=== PATIENT | female | born 1950 | race Caucasian/White ===

== ENCOUNTER 2020-02-21 06:11 | Day surgery (SDC) | payer OTHER ==
[2020-02-19 17:31] LABS: Absolute Lymphocytes (CBC) 2.4 K/uL (0.7-4.9); Hematocrit 45.4 % (36.0-45.0); Lymphocytes % 36.9 % (15.3-44.8); RBC Red Blood Cell Count 4.95 M/uL (3.86-4.86)
[2020-02-19 17:34] LABS: Protime INR 0.91
[2020-02-19 17:43] LABS: Potassium 3.6 mmol/L (3.5-5.1)
[2020-02-21] MEDS ORDERED: NA CHLORIDE 0.9% 500 ML ONE (06:54)
[2020-02-21] MEDS ORDERED: MIDAZOLAM HCL 2 MG/2 ML INJ ONE (07:15)
[2020-02-21] MEDS ORDERED: FENTANYL CITR 100 MCG/2 ML ONE (07:15)
[2020-02-21] MEDS ORDERED: NA CHLORIDE 0.9% 0 ML ONE (07:16)
[2020-02-21] MEDS ORDERED: ATROPINE SULF 1 MG/10 ML SYR IV ONE (07:16)
[2020-02-21 08:38] VITALS: TEMP 98.2
[2020-02-21 10:44] VITALS: O2SAT 92
[2020-02-21 10:45] VITALS: BP 107/95
--- NOTE | 2020-02-21 15:02 | OP ---
Surgeon: Jake Rose MD Set Up Inspector: Ced Kim. The patient admitted as an outpatient to the chemical lab technician today on 02/21/2020. History Of Present Illness: Ms. Sevilla is a 69-year-old woman with history of chest pain, multiple cardiac risk factors, abnormal carotid Doppler. She was admitted today as an outpatient on 02/21/20 20 to the chemical lab technician. Procedure Performed: Left heart catheterization, selective coronary arteriogram, bilateral selective carotid angiogram. Indication: CAD and CVD. Description Of Procedure: The patient was prepped and draped in the routine sterile fashion. Given Versed and fentanyl for IV sedation. Right groin access was obtained with a 6-[place] sheath. Angiog gerardo there showed a small iliac artery otherwise normal. StarClose was used to close the case. Lef t main was cannulated with a JL4 injection and there showed a very short left main. She had normal c ircumflex. She had 80% stenosis in the mid LAD extending from the first septal to the second diagona l. The RCA was normal, was very dominant. The circumflex was normal, was nondominant. JR4 catheter was used to cannulate bilateral carotid, left and right. The right carotid showed a 50% to 60% inte rnal carotid artery stenosis, 80% external carotid artery stenosis. The right side of the carotid sh owed similar findings with 50 to 60% ICA and 80% ECA. Both of the common carotids were normal. 6-Fr ench sheath and catheters were used. There were no complications. Blood Loss: 5 mL. Postoperative Diagnoses: 1.Moderate cerebrovascular disease with 50% to 60% bilateral . We will resume medical claus atment with aspirin, Plavix, as well as statin. 2.Coronary artery disease, single-vessel, severe. The patient has received already [address] and I elected to do the LAD in a staged manner. The total conscious sedation was 45 minutes. Plan: Plan is for medical therapy including aspirin, Plavix, statin for the carotid and I will sched ule her for LAD angioplasty and stent in the next 1 to 2 weeks. The case was discussed in detail wit h the patient and the family. She can go home today and I will set up her LAD stent as an outpatient . NB/MODL Voice ID: [id number] Report ID: [id number]
== END 2020-02-21 10:15 | disposition home or self-care (01) ==
LOC: CCL 06:11
DX: I65.23 Occlusion and stenosis of bilateral carotid arteries (principal); I25.10 Atherosclerotic heart disease of native coronary artery without angina pectoris; J44.9 Chronic obstructive pulmonary disease, unspecified; I10 Essential (primary) hypertension; E78.5 Hyperlipidemia, unspecified; Z88.8 Allergy status to other drugs, medicaments and biological substances; Z79.82 Long term (current) use of aspirin; Z79.02 Long term (current) use of antithrombotics/antiplatelets
CPT/HCPCS: 85025; 80048; 36415; 85610; 85730; 93454; 36222; C1893; J2250; J3010; J7040; 93458; J0583

== ENCOUNTER 2020-03-06 06:09 | Day surgery (SDC) | payer OTHER ==
[2020-03-06] MEDS ORDERED: HEPA 1000U/500MLS 1,000 UNIT/500 ML BAG IV ONE (06:46)
[2020-03-06] MEDS ORDERED: LIDOCAINE 1% 20 ML MDV ONE (06:46)
[2020-03-06] MEDS ORDERED: MIDAZOLAM HCL 2 MG/2 ML INJ ONE (06:46)
[2020-03-06] MEDS ORDERED: NITROGLYCERIN/D5W 25 MG/250 ML BTL IV ONE (06:47)
[2020-03-06] MEDS ORDERED: NA CHLORIDE 0.9% 500 ML ONE (06:47)
[2020-03-06] MEDS ORDERED: FENTANYL CITR 100 MCG/2 ML ONE (06:47)
[2020-03-06] MEDS ORDERED: NA CHLORIDE 0.9% 50 ML ONE (06:47)
[2020-03-06] MEDS ORDERED: NITROGLYCERIN 100 MCG/ML SYR (for cath lab use only) IV ONE (06:47)
[2020-03-06] MEDS ORDERED: ATROPINE SULF 1 MG/10 ML SYR IV ONE (06:47)
[2020-03-06] MEDS ORDERED: PRASUGREL (EFFIENT) 10 MG TAB ONE (08:15)
[2020-03-06] MEDS ORDERED: MORPHINE 4 MG/ML SYR IV PRN (09:09)
[2020-03-06] MEDS ORDERED: ONDANSETRON 4 MG/2 ML VIAL IV PRN (09:09)
[2020-03-06] MEDS ORDERED: ACETAMINOPHEN 325 MG TABLET PO PRN (10:00)
[2020-03-06] MEDS ORDERED: NITROGLYCERIN 0.4 MG/TAB SL PRN (10:00)
[2020-03-06] MEDS ORDERED: NA CHLORIDE 0.9% 1,000 ML IV SCH (10:00)
[2020-03-06 10:30] VITALS: BMI 19.1
--- NOTE | 2020-03-06 11:11 | OP ---
Date of Procedure: 03/06/2020 Surgeon: Jake Rose MD Complaint Coordinator: Ivonne Peña. Procedure: Selective coronary artery angiography with primary stent of the mid LAD. History Of Present Illness: Ms. Sevilla is a 69-year-old who was noted on recent angiography 2 week s ago to have an 80% stenosis in the mid LAD. At that time, she also had carotid angiogram, bilatera l selective showing moderate disease in both carotids. We decided to do the LAD stent as a staged pr ocedure. She was admitted today as an outpatient to the mobile lab technician, prepped and draped in the routine sterile fashion. Given Versed and fentanyl for IV sedation. A 6-[place] sheath introduced in the rig ht common femoral artery successfully. Angiography there was normal except for small vessels. Angio -Seal was used to close the case. An XB 3.0 LAD guide with side hole was used to cannulate the left main. A [place] wire was used to cross the lesion successfully. A 2.25 x 16 Synergy stent was placed at 11 atmosphere with 0% residual. There were no complications. Blood Loss: 5 mL. Anesthesia: Total conscious sedation was 45 minutes. Patient received aspirin, Effient and Angiomax during the procedure. Final Diagnosis: Coronary artery disease status post successful primary stent of the mid LAD. Plan: To continue her medical regimen at home except to add Plavix 75 mg daily. The case was discus sed with the patient. I did call her daughter and gave her an update. She will remain in the hospit al after 2 hours of bedrest overnight and she will go home in the morning. MORALES/KRISTY Voice ID: [id number] Report ID: [id number]
[2020-03-06 18:25] VITALS: O2SAT 94
[2020-03-06] MEDS ORDERED: ATORVASTATIN 40 MG TAB PO SCH (21:00)
[2020-03-07 06:19] LABS: Absolute Lymphocytes (CBC) 1.8 K/uL (0.7-4.9); Basophils % 1.3 % (0-1.3); Hematocrit 42.8 % (36.0-45.0); Lymphocytes % 31.1 % (15.3-44.8); MPV 8.9 fL (7.6-11.3); RBC Red Blood Cell Count 4.62 M/uL (3.86-4.86)
[2020-03-07 06:49] LABS: BUN Blood Urea Nitrogen 10 mg/dL (7-18); Bicarbonate 26 mmol/L (21-32); Glucose Level 91 mg/dL (74-106); HDL Cholesterol 89 mg/dL (40-60); LDL Cholesterol, Calculated 64 (<130); Potassium 3.9 mmol/L (3.5-5.1); Sodium Level 141 mmol/L (136-145)
[2020-03-07] MEDS ORDERED: CLOPIDOGREL 75 MG TABLET PO SCH (09:00)
[2020-03-07] MEDS ORDERED: METOPROLOL XL 25 MG TAB PO SCH (09:00)
[2020-03-07] MEDS ORDERED: ASPIRIN 81 MG CHEWABLE TABLET PO SCH (09:00)
[2020-03-07 09:11] VITALS: TEMP 98.4
[2020-03-07 09:42] VITALS: BP 97/64
--- NOTE | 2020-03-07 14:33 | EKG ---
Test Date: 2020-03-07 Test Time: 09:02:50 Weigh And Charge Worker: JORGE MEASUREMENT RESULTS: Intervals: Rate: 71 UT: 122 QRSD: 76 QT: 408 QTc: 443 [place]: P: 81 UT: 122 QRS: 84 T: 47 INTERPRETIVE STATEMENTS: Normal sinus rhythm Normal ECG Compared to ECG 05/10/2005 07:28:00 No significant changes Electronically Signed On 03-07-20 14:32:51 CDT by Jake Rose
--- NOTE | 2020-03-07 15:18 | PN ---
Subjective: Mrs. Sevilla is a 69-year-old who was admitted as an outpatient through the labeling strategist fo r a stent of her LAD. She had been documented to have an LAD stenosis along with moderate bilateral carotid artery stenosis about 2 weeks ago after angiography. She was scheduled for her LAD stent yes terday. She has been having some chest pain. She was brought to the labeling strategist yesterday and underwen t a successful primary stent of her mid LAD with a 2.25 x 16 Synergy stent. She received aspirin, Ef fient, Angiomax during the procedure. Overnight, she did very well. She does not have any chest nilesh n. Objective: Vital Signs: Stable. She is afebrile. Chest: Clear. Cardiac: Normal. Skin: Her right groin does not have any hematoma or erythema or swelling. Extremities: She has good distal pulses in dorsalis pedis and posterior tibial. Assessment/plan: She will be going home today with her home medications, which include statins, anti hypertensive therapy, aspirin. I will add Plavix 75 mg 1 p.o. daily to her regimen. I will see her in the office in the next 2 weeks. MORALES/KRISTY Voice ID: [id number] Report ID: [id number]
== END 2020-03-07 10:18 | disposition home or self-care (01) ==
LOC: CCL 06:09 → 2ND 09:02 → CCL 03-07 10:18
DX: I25.10 Atherosclerotic heart disease of native coronary artery without angina pectoris (principal); I65.23 Occlusion and stenosis of bilateral carotid arteries; I70.209 Unspecified atherosclerosis of native arteries of extremities, unspecified extremity; I10 Essential (primary) hypertension; J44.9 Chronic obstructive pulmonary disease, unspecified; E78.5 Hyperlipidemia, unspecified; Z79.82 Long term (current) use of aspirin
CPT/HCPCS: 93005; 85025; 80048; 36415; 80061; 85347 ×3; C1893; C1760; C1725; C1877; C9600; J2250; J3010; J0583; J7040